=== PATIENT | female | born 1980 | race Caucasian/White ===

== ENCOUNTER → 2020-05-24 16:20 | Outpatient (CLI) | payer OTHER, SELFPAY ==
--- NOTE | ~2020-05-24 | MM_ITS ---
EXAMINATION: MM screening bonifacio BI w sharron HISTORY: Screening TECHNIQUE: Craniocaudal and mediolateral oblique 3-D tomosynthesis images were obtained and synthetic 2-D images were generated. CAD analysis was submitted and interpreted. COMPARISON: Comparison to multiple prior studies sequentially, with oldest reviewed study dated 10/23. BREAST PARENCHYMAL COMPOSITION: The breasts are extremely dense, which lowers the sensitivity of mamm ography. FINDINGS: There is no evidence of suspicious mass, calcification, or architectural distortion to sugg est malignancy in either breast. There has been no suspicious interval change. IMPRESSION: 1. No mammographic evidence of malignancy. 2. Recommend routine screening mammography in one year. BI-RADS Category 1: Negative Reviewed, dictated and finalized at location A. S ADVISORY MANAGER
== END ==
PROVIDERS: Visit Provider Obstetrics & Gynecology Gynecology
DX: Z12.31 Encounter for screening mammogram for malignant neoplasm of breast (principal)
CPT/HCPCS: 77063; 77067

== ENCOUNTER → 2021-02-28 08:19 | Outpatient (CLI) | payer OTHER, SELFPAY ==
--- NOTE | ~2021-02-28 | MMUS_ITS ---
EXAMINATION: MM diagnostic bonifacio BI w sharron, US breast LT complete HISTORY: Palpable left breast mass TECHNIQUE: Additional 3-D tomosynthesis images of the left breast were performed and synthetic 2-D im ages were generated. CAD analysis was submitted and interpreted. High resolution complete left breast ultrasound was performed. COMPARISON: Comparison to multiple prior studies sequentially, with oldest reviewed study dated 11/13. BREAST PARENCHYMAL COMPOSITION: The breasts are extremely dense, which lowers the sensitivity of mamm ography. FINDINGS: MAMMOGRAPHIC FINDINGS: There are no suspicious masses, calcifications or architectural distortion in either breast to sugges t malignancy. ULTRASOUND: Complete bilateral US of all 4 quadrants of the breasts and retroareolar region was reviewed. There a re multiple simple and complicated cyst of the left breast, largest at 2:00, 3 cm from the nipple link suring 1.5 cm maximum dimension. There is a cluster of microcysts at 6:00, 1 cm from the nipple measu ring 5 mm. No suspicious masses to suggest malignancy. IMPRESSION: 1. No evidence for malignancy in either breast. 2. Routine yearly screening mammogram and regular clinical breast examination are recommended. BI-RADS Category 2: Benign finding(s). Reviewed, dictated and finalized at location A. IMPRESSION: 1. No evidence for malignancy in either breast. 2. Routine yearly screening mammogram and regular clinical breast examination a re recommended. BI-RADS Category 2: Benign finding(s).
== END ==
PROVIDERS: Visit Provider Nurse Practitioner
DX: N63.20 Unspecified lump in the left breast, unspecified quadrant (principal)
CPT/HCPCS: 76641; 77062; 77066; G0279

== ENCOUNTER 2023-07-13 10:00 | Outpatient (RCR) | payer BC, SELFPAY ==
--- NOTE | 2023-06-15 09:46 | OPREHPOC ---
Outpatient Therapy Plan of Care This is a Multidisciplinary Plan of Care that may contain components documented by all disciplines (PT, OT, and ST.) PT Problem 1 PT Problem #1 Knowledge Deficit PT Goal 1 Goal 1. Patient will perform independent HEP 2. Patient will verbalize urge suppression strategies Target Visit 5 PT Problem 2 PT Problem #2 Pain PT Goal 1 Goal 1. Patient able to do all normal activities without pelvic pain for at least 2 weeks Target Visit 5 PT Problem 3 PT Problem #3 Impaired Functional ADLs PT Goal 1 Goal 1. Patient able to do all normal activities without urge incontinence for at least 2 weeks Target Visit 5
--- NOTE | 2023-06-15 09:46 | PTOPEVAL1 ---
Assessment and note entered by Lea Mays DPT Evaluation Information Assessment Status Evaluation Subjective Information Pt reports she has been diagnosed with pelvic floor muscle spasms and is noticing cramping pain. Has had kidney stones and appendicitis ruled out. Has been taking a muscle relaxer which is helping . States she has had a lot of stress over the past 6 months and has been sitting a lot more than normal and not as active as she has normally been. Has also been diagnosed with OAB and still has a lot of urgency issues even when taking meds. Voids less than 10 times a day and none at night. Normally no pain with urination. Can hold urge to void up to 30 minutes. Urge incontinence once a week. No stress incontinence. BM every other day, no pain. No history of pelvic pain up until this point. Pt has been 2 times, 2 deliveries both vaginal. Tearing with her first. No other INTELLECTUAL PROPERTY PARALEGAL history. No other b/b issues. Pt still gets regular periods. Patient goal: fix the cramping and pain, strong and healthy pelvic floor When patient's pain is high, she reports nausea and has been unable to do most activities at home. States she has spent a lot of time laying on the couch. Reported Pain Level Pain Score 2: Self Report Assessment PT Clinical Summary The patient is presenting to skilled therapy with a recent onset of pelvic pain. She presents with increased pelvic floor muscle tone which is contributing to her pain and difficulty performing her normal activities. She will highly benefit from therapy to address her muscular impairments in order to return to full function. Plan of Care Interventions Electrical Stimulation,Hot Pack/Cold Pack,Manual Therapy,Neuro Re-education,Patient/Caregiver Education,Therapeutic Activities,Therapeutic Exercise PT Services Indicated Yes Treatment Frequency and 1 time a week for 5 visits Duration These treatments will address the objective and functional deficits as defined above. The patient will be advanced safely and appropriately in order for the patient to progress towards his/her prior level of function. Additional exercises will be introduced and as well as a comprehensive home exercise program upon discharge, if needed, ?to ensure carryover of functional gains achieved in the clinic.
--- NOTE | 2023-07-13 10:36 | OPREHPOC ---
Outpatient Therapy Plan of Care This is a Multidisciplinary Plan of Care that may contain components documented by all disciplines (PT, OT, and ST.) PT Problem 1 PT Problem #1 Knowledge Deficit PT Goal 1 Goal 1. Patient will perform independent HEP 2. Patient will verbalize urge suppression strategies Target Visit 5 Progress Met PT Problem 2 PT Problem #2 Pain PT Goal 1 Goal 1. Patient able to do all normal activities without pelvic pain for at least 2 weeks Target Visit 5 Progress Met PT Problem 3 PT Problem #3 Impaired Functional ADLs PT Goal 1 Goal 1. Patient able to do all normal activities without urge incontinence for at least 2 weeks Target Visit 5 Progress Met
--- NOTE | 2023-07-13 10:36 | PTOPDC ---
Assessment and note entered by Lea Mays DPT Evaluation Information Assessment Status Discharge Subjective Information No pain in the last week, has been feeling good with therapy. Is not limited at home or work at all and has had intercourse without pain. No return to MD scheduled. Reported Pain Level Pain Score 0: Self Report Assessment PT Clinical Summary The patient has made excellent progress in therapy and reports no pain in the last week. She has not been limited with any work or household activities. She demonstrates improved core strength, no tenderness to palpation, and improved pelvic floor muscle tone. Due to her progress, plan for discharge at this time. She has been educated to continue HEP and follow up with MD and /or PT as needed. Plan of Care PT Services Indicated No
== END 2023-07-13 13:44 | disposition home or self-care (01) ==
LOC: ANHPT 10:00
PROVIDERS: Visit Provider Nurse Practitioner
DX: R10.2 Pelvic and perineal pain (principal)
CPT/HCPCS: 97110; 97112; 97140; 97161; 97530

== ENCOUNTER 2024-08-22 02:14 | Day surgery (SDC) | payer BC, SELFPAY ==
[2024-08-12 15:44] VITALS: BMI 20.8
--- OUTSIDE RECORDS SUMMARY | 2024-08-22 02:16 | XMS_ITS | Continuity of Care Document ---
Author Organization [facility] Address [address] [place] [address] [address] [place] [address] Phone Care Team Providers Care Entry Level Civil Engineer Name Role Phone Gallegos OD, Rudy Unavailable Unavailable Procedures Procedure Date Eye Exam, New Patient Refraction Advance Directives Directive Yes / No Effective Date File Name No Information Encounters Encounter Description Practice Location Reason(s) For Visit Diagnoses Date Provider Providers Copied on Encounter [facility], [address] [place] [address] [address], [place], [place], [id number], [place] tel:[phone] [facility] No Information 1-200 9 Gallegos OD Rudy. [address] , [address], [place], [address], [place]. tel:[phone] Family History Family Member Type Diagnosis Age At Onset No Information Payers Payer name Insurance type Covered democrat ID Authoriza tion(s) [employer] Vision Plan CI [id number] Social History Type Description Quantity Date Captured Comments Sex Female Smoking Status No Information Chief Complaint And Reason For Visit No Information Reason For Referral Reason For Referral No Information History Of Present Illness Encounter Date Complaint History Of Prese nt Illness No Information Functional Status Date Functional Assessmen t No Information Instructions Date Instruction Additional Infor mation No Information Assessments Type Assessment Date No Information Patient Care Teams Name Effective Dates (start - stop) Status Members No Information
--- OUTSIDE RECORDS SUMMARY | 2024-08-22 02:16 | XMS_ITS | Clinical Summary ---
Author Organization [facility] Address [address] [place] [phone] Care Team Providers Care Ice Skating Instructor Name Role Phone Rosalia Cabrera Primary Care Provider + Allergies No known active allergies Medications solifenacin (VESIcare) 10 mg tablet 12/03/2021 Active Active Problems Problem Noted Date Diagnosed Date Inconclusive mammogram due to dense breasts 11/28 Abnormal ultrasound of breast 10/18/2022 Dense breast tissue on mammogram 03/02/2021 Family history of breast cancer in first degree relative 03/02/2021 At high risk for breast cancer 03/02/2021 Breast cancer screening, high risk patient 03/02 Breast mass 03/02/2021 Vitamin D deficiency 10/08/2020 Dermatochalasis 03/11/2015 Resolved Problems Problem Noted Date Diagnosed Date Resolved Date Encounter for nonprocreative genetic counseling and testing 03/02/2021 10/18/2022 Immunizations Immunization Administration Dates Next Due Influenza, Quadrivalent, Hig h Dose, Preservative Free, Intrr 02/24/2021 Surgical History Surgery Date Site/Laterality Comments MS TONSILLECTOMY PRIMARY/SECONDARY <AGE 12 BLEPHAROPTOSIS REPAIR 06/13/2018 Left Internal ptosis repair BREAST BIOPSY Family History Medical History Relation Name Comments Breast cancer Maternal Grandmother Contra lateral breast at 64 Lung cancer Maternal Grandmother Breast cancer Mother Naomi Haddad Recurrence at 60; +/-/+, BRCA only negative Breast cancer Other 1 maternal great aunt Colon cancer Other 1 maternal great aunt Breast cancer Other 2 maternal great-aunt Uterine cancer Other 2 maternal great-aunt Relation Name Status Comments Maternal Grandmother Alive Mother Naomi Haddad Alive Other 1 maternal great aunt Other 2 maternal great-aunt Alive Sister Inocencio Alive Social History Tobacco Use Types Packs/Day Years Used Date Smoking Tobacco: Never Smokeless Tobacco: Never AUDIT-C Answer Date Recorded Q1: How often do you have a drink containing alc ohol? 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 Gender Identity Not on file Sexual Orientation Not on file Obstetrics History Para Term AB IAB SAB Ectopic Multiple Livin g Live Births 2 2 2 Date Outcome GA Total Labor Labor//3rd Weight Sex Type Anes PTL Laura A1 A5 Name Clin Term Term Last Filed Vital Signs Vital Sign Reading Time Taken Comments Blood Pressure 115/79 12/12/2023 8:05 AM CDT Pulse 66 12/12/2023 8:05 AM CDT Temperature 36.7 C (98 F) 12/12/2023 8:05 AM CDT Respiratory Rate 16 12/12/2023 8:05 AM CDT Oxygen Saturation 100% 12/12/2023 8:05 AM CDT Inhaled Oxygen Concentration - - Weight 56.2 kg (124 lb) 12/12/2023 8:05 AM CDT Height 162.6 cm (5' 4 ) 10/18/2022 8:47 AM CDT Body Mass Index 21.28 10/18/2022 8:47 AM CDT Plan of Treatment Health Maintenance Due Date Last Done Comments Cervical Cancer Screening 1979 Colon Cancer Screening-Colonoscopy 1979 Depression Screening 1979 Hepatitis C Screening 1979 Hepatitis B Screening 1997 Regular Well Visit/Exam 18-64 1997 Covid-19 Vaccine (2023-2 5 season) 2023 08/04/2020, 07/07/2020 Influenza Vaccine (#1) 2023 02/24/2021 Breast Cancer Screening-Mammogram 04/14/2025 04/14/2024, 04/06/2023, 03/20/2022 DTaP/Tdap/Td Vaccine (2 - Td or Tdap) 04/13/2033 04/13/2023 HPV Vaccines Aged Out No longer eligi ble based on patient's age to complete this topic Pneumococcal vaccine <65 Aged Out No longer eligible based on patient's age to complete this topic Procedures Procedure Name Priority Date/Time Associated Diagnosis Comments DIAGNOSTIC MAMMOGRAM BILATERAL W DILEEP Schedule Routine, Read Routine (OP Routine) 04/14/2024 9:54 AM STAINING MACHINE OPERATOR Mass of upper outer quadrant of right breast from Last 3 Months or Most Recently Relevant to Health Maintenance Results * Diagnostic Mammogram Bilateral W Dileep (04/14/2024 9:54 AM STAINING MACHINE OPERATOR) Anatomical Region Laterality Modality Breast Bilateral Mammography 04/14/2024 2:02 PM STAINING MACHINE OPERATOR Impressions 04/14/2024 2:02 PM STAINING MACHINE OPERATOR No evidence to suggest malignancy is seen. The patient may return to screening mammography and MR as per ACR guidelines. OVERALL FINAL ASSESSMENT: [id number] Electronically signed by: Rosa Boyer M.D. Narrative 04/14/2024 2:02 PM STAINING MACHINE OPERATOR EXAMINATION: BILATERAL DIGITAL DIAGNOSTIC MAMMOGRAM AND DIGITAL BREAST TOMOSYNTHESIS; RIGHT BREAST SONOGRAM HISTORY: Follow-up COMPARISON: Cases dating back to March 07, 2022 TECHNIQUE: Full field digital mammographic views of the bilateral breast(s) were performed, including computer aided detection (CAD) and digital breast tomosynthesis (DBT). Directed ultrasound evaluation of the right breast(s) was performed. BREAST PARENCHYMAL COMPOSITION: The breasts are extremely dense, which lowers the sensitivity of mammography. MAMMOGRAM FINDINGS: There are findings consistent with the known breast cysts. No suspicious masses are seen mammographically. No suspicious calcifications are seen. There is no unexplained architectural distortion. There is no skin thickening seen. There are no mammographically abnormal lymph nodes seen in the axillae or elsewhere. ULTRASOUND FINDINGS: Again seen at 10:00 on the right is a dominant circumscribed hypoechoic nodule with a maximum dimension of 8 mm. There are 2 adjacent small, hypoechoic, circumscribed nodules which appear very similar and probably represent cysts containing debris. The dominant mass has decreased in size over time. The maximum dimension is now 8 mm. Reema Orlando MD IMG MAMMO PROCEDURES Final Result from Last 3 Months or Most Recently Relevant to Health Maintenance Insurance [employer] [place] [employer] [place] Care Teams Ice Skating Instructor Relationship Specialty Start Date End Date Rosalia Cabrera PA [address] [place] [address] PCP - General Nurse Practitioner 02/09/21
--- OUTSIDE RECORDS SUMMARY | 2024-08-22 02:16 | XMS_ITS | Referral Summary ---
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 Gender Identity Not on file Sexual Orientation Not on file Last Filed Vital Signs Vital Sign Reading [...] 10/18/2022 8:47 AM CDT Plan of Treatment Not on file Procedures Procedure Name Priority Date/Time Associated Diagnosis Comments DIAGNOSTIC MAMMOGRAM BILATERAL W DILEEP Schedule Routine, Read Routine (OP Routine) 04/14/2024 9:54 AM MACHINE STONECUTTER Mass of upper outer quadrant of right breast from Last 3 Months or Most Recently Relevant to Health Maintenance Results * Diagnostic Mammogram Bilateral W Dileep (04/14/2024 9:54 AM MACHINE STONECUTTER) Anatomical Region Laterality Modality Breast Bilateral Mammography 04/14/2024 2:02 PM MACHINE STONECUTTER Impressions 04/14/2024 2:02 PM MACHINE STONECUTTER No evidence to suggest malignancy is seen. The patient may return to screening mammography and MR as per ACR guidelines. OVERALL FINAL ASSESSMENT: [id number] Electronically signed by: Rosa Boyer M.D. Narrative 04/14/2024 2:02 PM MACHINE STONECUTTER EXAMINATION: BILATERAL DIGITAL DIAGNOSTIC MAMMOGRAM AND DIGITAL [...] Most Recently Relevant to Health Maintenance [place] [employer] [place] [employer] [place] Care Teams Business Process Consultant Relationship Specialty Start Date End Date Rosalia Cabrera PA [address] [place] [phone] PCP - General Nurse Practitioner 02/09/21
--- OUTSIDE RECORDS SUMMARY | 2024-08-22 02:16 | XMS_ITS | Encounter Summary ---
Author Organization [facility] Address [address] [place] [address] Care Team Providers Care Fur Mixer Name Role Phone Rosalia Cabrera Primary Care Provider [phone] Encounter Details Date Type Department Care Team (Late st Contact Info) Description 07/31/2023 [employer] Message [employer] Business Office [address] [place] [address] [facility] Provider Action Needed Social History Tobacco Use Types Packs/Day Years Used Date Smoking Tobacco: Never Smokeless Tobacco: Never Comments:not a smoker Alcohol Use Standard Drinks/Week Comments Yes 6 (1 standard drink = 0.6 oz pur e alcohol) weekly PHQ-2 Answer Date Recorded Patient Health Questionnaire-2 Score 0 07/12/2022 Comments No Sex and Gender Information Value Date Recorded Sex Assigned at Female 06/06/2024 7:44 AM SALES REPRESENTATIVE TRAINEE Legal Sex Female 7:22 AM CDT Gender Identity Not on file Sexual Orientation Not on file documented as of this encounter Plan of Treatment Not on file documented as of this encounter Visit Diagnoses Not on filedocumented in this encounter Additional Health Concerns Assessment Noted Time PHQ-9 Depression Total Score: 0 10/09/19 21 10:15 AM CDT documented as of this encounter Care Teams Fur Mixer Relationship Specialty Start Date End Date Rosalia Cabrera APNP [address] [place] [id number] PCP - General NURSE PRACTITIONER 03/01/18 documented as of this encounter
--- OUTSIDE RECORDS SUMMARY | 2024-08-22 02:16 | XMS_ITS | Clinical Summary ---
Author Organization [facility] Address [address] [place] [address] Care Team Providers Care Feed Project Engineer Name Role Phone Rosalia Cabrera Primary Care Provider Allergies Active Allergy Reactions Criticality Noted Date Comments Seasonal Eyes Water & Itch 10/08/2020 Medications hydrocortisone 2.5 % Lotion lotionIndicatio ns:Folliculitis Apply 1 (each) topically three times daily as needed. 118 mL 1 5 Active clindamycin (CLEOCIN T) 1 % lotionIndicatio ns:Folliculitis Apply topically 2 (two) times a day. 60 mL 2 5 Active vibegron (GEMTESA) 75 MG tabletIndicatio ns:Overactive bladder Take 1 tablet (75 mg total) by mouth daily. 90 tablet 3 5 Active Active Problems Problem Noted Date Diagnosed Date Breast mass 03/02/2021 Dense breast tissue on mammogram 03/02/2021 Encounter for nonprocreative genetic counseling and testing 03/02/2021 Family history of breast cancer in first degree relative 03/02/2021 Vitamin D deficiency 10/08/2020 Eye pain, left 10/21/2018 Overactive bladder 03/19/2018 Dermatochalasis 03/11/2015 Resolved Problems Problem Noted Date Diagnosed Date Resolved Date Breast cancer screening, high risk patient 03/02/2021 07/17/2022 Encounters Date Type Department Care Team Description 06/19/2024 Telephone [facility] Family & Internal Medicine [address] [phone] Rosalia Cabrera APNP Results 06/13/2024 Telephone [facility] Internal [address] [phone] Rosalia Cabrera APNP Medication Problem 06/11/[address] [phone] Rosalia Cabrera APNP Lab Results 06/06/2024 7:40 AM HYDROELECTRIC PRODUCTION TECHNICIAN Office Visit [facility] Internal [address] [phone] Rosalia Cabrera APNP Physical 06/06/2024 Travel from Last 3 Months Immunizations Immunization Administration Dates Next Due Fluzone 6 Months+ Quad (0.5 mL Prefilled Syringe) 02/24/2021,02/13/2020,03/24/2019 Influenza Adult (Generic) 03/19/2024,02/24/2021 Tdap (Adacel) 04/13/2023 Family History Medical History Relation Comments Breast Cancer Maternal Grandmother Cancer Maternal Grandmother Breast Cancer Mother Cancer Mother Diabetes Other Hypertension Other Relation Status Comments Maternal Grandmother Mother Other Social History Tobacco Use Types Packs/Day Years Used Date Smoking Tobacco: Never Smokeless Tobacco: Never Tobacco Cessation:Counseling Given: No Comments:not a smoker Alcohol Use Standard Drinks/Week Comments Not Currently 6 (1 standard drink = 0.6 oz pur e alcohol) weekly PHQ-2 Answer Date Recorded Patient Health Questionnaire-2 Score 0 06/06/2024 Comments No Sex and Gender Information Value Date Recorded Sex Assigned at Female 06/06/2024 7:44 AM HYDROELECTRIC PRODUCTION TECHNICIAN Legal Sex Female 7:22 AM CDT Gender Identity Not on file Sexual Orientation Not on file Last Filed Vital Signs Vital Sign Reading Time Taken Comments Blood Pressure 108/68 06/06/2024 7:48 AM HYDROELECTRIC PRODUCTION TECHNICIAN Pulse 64 06/06/2024 7:48 AM HYDROELECTRIC PRODUCTION TECHNICIAN Temperature 36 C (96.8 F) 06/06/2024 7:48 AM HYDROELECTRIC PRODUCTION TECHNICIAN Respiratory Rate 16 06/06/2024 7:48 AM HYDROELECTRIC PRODUCTION TECHNICIAN Oxygen Saturation 98% 06/06/2024 7:48 AM HYDROELECTRIC PRODUCTION TECHNICIAN Inhaled Oxygen Concentration - - Weight 55.6 kg (122 lb 9.6 oz) 06/06/2024 7:48 A M HYDROELECTRIC PRODUCTION TECHNICIAN Height 162.6 cm (5' 4 ) 06/06/2024 7:48 AM HYDROELECTRIC PRODUCTION TECHNICIAN Body Mass Index 21.04 06/06/2024 7:48 AM HYDROELECTRIC PRODUCTION TECHNICIAN Plan of Treatment Health Maintenance Due Date Last Done Comments Cervical Cancer Screening Pap Smear (Age 30 to 64) Every 3 Years 1979 Colorectal Cancer Screening Colonoscopy (10 Years) 1979 Hepatitis C 1997 Hepatitis B Vaccines (1 of 3 - 19+ 3-dose series) 1998 Cervical Cancer Screening Pap with HPV Testing (Age 30 to 64) Every 5 Years 2009 Annual Physical 06/06/2025 06/06/2024, 03/30, 10/08/2020 COVID-19 Vaccine ( season) 2025 04/16/2022, 03/26/2021, 08/04/2020, Additional history exists Postponed from 12/30/2023 (Patient Refused) Cervical Cancer Screening with HPV 06/06/2025 Postponed from 2009 (Going to Outside Clinic) Mammogram Screening 04/14/2026 04/14/2024, 04/06/2023, 03/20/2022, Additional history exists DTaP, Tdap and Td Vaccines (2 - Td or Tdap) 04/13/2033 04/13/2023 PHQ-2 (Physician Voss) Completed 06/06/2024 HPV Vaccines Aged Out No longer eligi ble based on patient's age to complete this topic Meningococcal B Vaccine Aged Out No l onger eligible based on patient's age to complete this topic Meningococcal Vaccine Aged Out No zeina jakob eligible based on patient's age to complete this topic Pneumococcal Vaccine: Pediatrics (0 to 5 Years) and At-Risk Patients (6 to 49 Years) Aged Out No longer eligible based on patient's age to complete this topic RSV Immunizations Under 20 Months Aged Out No longer eligible based on patient's age to complete this topic Medical Devices Implanted Type Area Real Estate Transaction Coordinator Device Identifier Shelf Expiration Date Model / Serial / Lot Kit Internal Brace Hand & Wrist Lig Augment Repair - [id number] Implanted:Qty: 1 on 12/28/2021 by Magdi Pillai MD at [facility] [place] Right: Thumb [employer] [id number] 07/28/2026 [id number] / / [id number] Procedures Procedure Name Priority Date/Time Associated Diagnosis Comments DIRECT BILIRUBIN Routine 06/06/2024 1:00 PM HYDROELECTRIC PRODUCTION TECHNICIAN Total bilirubin, elevated COMPREHENSIVE METABOLIC PANEL Routine 06/06/2024 1:00 PM HYDROELECTRIC PRODUCTION TECHNICIAN Routine medical exam CBC W/DIFF AUTOMATED Routine 06/06/2024 1:00 PM HYDROELECTRIC PRODUCTION TECHNICIAN Routine medical exam LIPID PANEL Routine 06/06/2024 1:00 PM HYDROELECTRIC PRODUCTION TECHNICIAN Routine medical exam TSH W/REFLEX Routine 06/06/2024 1:00 PM HYDROELECTRIC PRODUCTION TECHNICIAN Routine medical exam VITAMIN D, 25 OH Routine 06/06/2024 1:00 PM HYDROELECTRIC PRODUCTION TECHNICIAN Vitamin D deficiency COLLECTION VENOUS BLOOD VENIPUNCTURE Routine 06/06/2024 8:34 AM HYDROELECTRIC PRODUCTION TECHNICIAN Routine medical exam Vitamin D deficiency MAMMOGRAM GENERIC (SCAN ORDER) Routine 03/20/2022 from Last 3 Months or Most Recently Relevant to Health Maintenance Results * TSH W/REFLEX (06/06/2024 1:00 PM HYDROELECTRIC PRODUCTION TECHNICIAN) TSH 1.866 0.358 - 3.740 uIU/ML 06/06/2024 4:03 PM HYDROELECTRIC PRODUCTION TECHNICIAN [facility] 06/06/2024 1:00 PM HYDROELECTRIC PRODUCTION TECHNICIAN us [facility] Final Resul t -[facility] [address] [place] [address], [place] [phone] * (ABNORMAL) COMPREHENSIVE METABOLIC PANEL (06/06/2024 1:00 PM HYDROELECTRIC PRODUCTION TECHNICIAN) [facility] SODIUM S/P/B 140 136 - 145 MMOL/L 06/06/2024 4:03 PM [facility] POTASSIUM S/P/B 4.1 3.5 - 5.1 MMOL/L 06/06/2024 4:03 PM [facility] CHLORIDE S/P/B 103 98 - 107 MMOL/L 06/06/2024 4:03 PM [facility] CO2 31.0 21 - 32 MMOL/L 06/06/2024 4:03 PM [facility] GLUCOSE 84 70 - 99 MG/DL 06/06/2024 4:03 PM [facility] BUN 15 7 - 18 MG/DL 06/06/2024 4:03 PM [facility] CREATININE S/P/B 0.71 0.55 - 1.02 MG/DL 06/06/2024 4:03 PM [facility] CALCIUM S/P/B 9.0 8.4 - 10.5 MG/DL 06/06/2024 4:03 PM [facility] BILIRUBIN TOTAL S/P/B 1.6(H) 0.2 - 1.0 MG/DL 06/06/2024 4:03 PM [facility] ALKALINE PHOSPHATASE S/P/B 43 37 - 98 U/L 06/06/2024 4:03 PM [facility] AST 9(L) 15 - 37 U/L 06/06/2024 4:03 PM [facility] ALT 20 14 - 59 U/L 06/06/2024 4:03 PM [facility] TOTAL PROTEIN S/P/B 6.4 6.4 - 8.2 G/DL 06/06/2024 4:03 PM [facility] ALBUMIN S/P/B 4.1 3.4 - 5.0 G/DL 06/06/2024 4:03 PM HYDROELECTRIC PRODUCTION TECHNICIAN [facility] ANION GAP 6.0 5 - 15 MMOL/L 06/06/2024 4:03 PM [facility] Comment:REFERENCE RANGE NOT ESTABLISHED OSMOLALITY (CALC) 290 MOSM/KG 025 4:03 PM [facility] Comment:REFERENCE RANGE NOT ESTABLISHED GFR ESTIMATE >90 >90 ML/MIN/1. 73 M2 06/06/2024 4:03 PM [facility] GFR NOTES GFR REFERENCE S: 06/06/2024 4:03 PM [facility] Comment: THE ESTIMATED GFR IS CALCULATED USING THE 2020 CKD-EPI EQUATION. THE FOLLOWING CATEGORIES FOR GRADING RENAL FUNCTION ARE RECOMMENDED BY THE INTERNATIONAL SOCIETY OF NEPHROLOGY (KDIGO 2012 CLINICAL PRACTICE GUIDELINE). G1,NORMAL OR HIGH: >89 ml/min/1.73 m2 G2,MILDLY DECREASED: 60-89 ml/min/1.73 m2 G3A,MILDLY TO MODERATELY DECREASED: 45-59 ml/min/1.73 m2 G3B,MODERATELY TO SEVERELY DECREASED: 30-44 ml/min/1.73 m2 G4,SEVERELY DECREASED: 15-29 ml/min/1.73 m2 G5,KIDNEY FAILURE: <15 ml/min/1.73 m2 06/06/2024 1:00 PM HYDROELECTRIC PRODUCTION TECHNICIAN us [facility] Final Resul t [facility] [address] [place] [address], * (ABNORMAL) LIPID PANEL (06/06/2024 1:00 PM HYDROELECTRIC PRODUCTION TECHNICIAN) CHOLESTEROL 241(H) <200 MG/DL 06/06/2024 4:03 PM [facility] TRIGLYCERIDES 50 <150 MG/DL 06/06/2024 4:03 PM [facility] HDL 73 >40 MG/DL 06/06/2024 4:03 PM [facility] LDL-C 158(H) <100 MG/DL 06/06/2024 4:03 PM HYDROELECTRIC PRODUCTION TECHNICIAN [facility] VLDL CALCULATION 10 5 - 28 MG/DL 06/06/2024 4:03 PM HYDROELECTRIC PRODUCTION TECHNICIAN [facility] CHOL/HDL RATIO 3.3 0.0 - 4.0 06/06/2024 4:03 PM HYDROELECTRIC PRODUCTION TECHNICIAN [facility] LDL/HDL 2.2(H) 0.41 - 2.13 06/06/2024 4:03 PM HYDROELECTRIC PRODUCTION TECHNICIAN [facility] NON HDL CHOLESTEROL 168(H) <140 MG/DL 06/06/2024 4:03 PM HYDROELECTRIC PRODUCTION TECHNICIAN [facility] 06/06/2024 1:00 PM HYDROELECTRIC PRODUCTION TECHNICIAN [facility] Final Resul t Performing Organization Address City/[facility] Co de Phone Number [facility] [address] [place] [address], [place] [phone] * (ABNORMAL) DIRECT BILIRUBIN (06/06/2024 1:00 PM HYDROELECTRIC PRODUCTION TECHNICIAN) BILIRUBIN DIRECT S/P/B 0.3(H) 0.0 - 0.2 MG/DL 06/11/2024 4:19 PM HYDROELECTRIC PRODUCTION TECHNICIAN [facility] 06/06/2024 1:00 PM HYDROELECTRIC PRODUCTION TECHNICIAN [facility] Final Resul t Performing Organization Address City/[facility]/ZIP Co de Phone Number [address] [address], [place] [phone] * (ABNORMAL) CBC W/DIFF AUTOMATED (06/06/2024 1:00 PM HYDROELECTRIC PRODUCTION TECHNICIAN) WBC 3.04(L) 4.00 - 10.80 x10'3/uL 06/06/2024 5:26 PM [facility] RBC 4.47 4.10 - 5.40 x10'6/uL 06/06/2024 5:26 PM [facility] HGB 14.4 12.0 - 16.0 G/DL 06/06/2024 5:26 PM [facility] HCT 43.2 36.0 - 47.0 % 06/06/2024 5:26 PM [facility] MCV 96.6 78.0 - 100.0 FL 06/06/2024 5:26 PM [facility] MCH 32.2(H) 27.0 - 31.0 PG 06/06/2024 5:26 PM [facility] MCHC 33.3 33.0 - 36.0 G/DL 06/06/2024 5:26 PM [facility] RDW 11.8 11.5 - 14.5 % 06/06/2024 5:26 PM [facility] PLT 172 150 - 350 x10'3/uL 06/06/2024 5:26 PM [facility] MPV 10.9(H) 7.4 - 10.4 FL 06/06/2024 5:26 PM [facility] DIFFERENTIAL TYPE AUTOMATED DIFFERENTIAL 06/06/2024 5:26 PM [facility] NEUTROPHILS % 54.9 % 06/06/2024 5:26 PM [facility] LYMPHOCYTES % 34.2 % 06/06/2024 5:26 PM [facility] MONOCYTES % 7.9 % 06/06/2024 5:26 PM [facility] EOSINOPHILS % 2.0 % 06/06/2024 5:26 PM [facility] BASOPHILS % 1.0 % 06/06/2024 5:26 PM [facility] IMMATURE GRANS % 0.0 % 06/06/2024 5:26 PM HYDROELECTRIC PRODUCTION TECHNICIAN [facility] ABS. NEUTROPHILS 1.67 1.60 - 8.30 x10'3/uL 06/06/2024 5:26 PM HYDROELECTRIC PRODUCTION TECHNICIAN [facility] ABS. LYMPHOCYTES 1.04 0.80 - 4.70 x10'3/uL 06/06/2024 5:26 PM HYDROELECTRIC PRODUCTION TECHNICIAN [facility] ABS. MONOCYTES 0.24 0.00 - 1.50 x10'3/uL 06/06/2024 5:26 PM HYDROELECTRIC PRODUCTION TECHNICIAN [facility] ABS. EOSINOPHILS 0.06 0.00 - 0.40 x10'3/uL 06/06/2024 5:26 PM HYDROELECTRIC PRODUCTION TECHNICIAN [facility] ABS. BASOPHILS 0.03 0.00 - 0.20 x10'3/uL 06/06/2024 5:26 PM HYDROELECTRIC PRODUCTION TECHNICIAN [facility] ABS. IMMATURE GRANULOCYTES 0.00 0.00 - 0.03 x10'3/uL 06/06/2024 5:26 PM HYDROELECTRIC PRODUCTION TECHNICIAN [facility] 06/06/2024 1:00 PM HYDROELECTRIC PRODUCTION TECHNICIAN [facility] Final Resul t Performing Organization Address [facility] Co de Phone Number [facility] [address] [place] [address], * (ABNORMAL) VITAMIN D 25 OH ([facility] ONLY) (06/06/2024 1:00 PM HYDROELECTRIC PRODUCTION TECHNICIAN) VITAMIN D 25 HYDROXY TOTAL S/P/B 25.0(L) 30 - 100 NG/ML 06/06/2024 4:03 PM HYDROELECTRIC PRODUCTION TECHNICIAN [facility] Comment: DEFICIENT <20 INSUFFICIENT 20-30 SUFFICIENT 30-100 06/06/2024 1:00 PM HYDROELECTRIC PRODUCTION TECHNICIAN [facility] Final Resul t [facility] [address] [place] [address], * MAMMOGRAM (03/20/2022) Anatomical Region Laterality Modality Other us Doc [facility] Scanned SCANNING Final Resu lt from Last 3 Months or Most Recently Relevant to Health Maintenance Insurance [facility] Care Teams Feed Project Engineer Relationship Specialty Start Date End Date Rosalia Cabrera APNP [address] [place] [address] PCP - General NURSE PRACTITIONER 03/01/18
[2024-08-22 12:15] VITALS: BP 119/79; PULSE 67; RESP 18; TEMP 36.8; O2SAT 100; BMI 20.5
[2024-08-22 12:29] LABS: BEDSIDEPREGUCG Negative (Negative)
[2024-08-22] MEDS: LACTATED RINGERS 1,000 ML 150 ML IV CONT (12:36)
--- NOTE | 2024-08-22 12:44 | P.HP_ITS ---
H&P: HPI History of Present Illness Date/Time: 08/22/24 12:44 Chief Complaint: Screening colonoscopy Narrative: This is the patient's first colonoscopy. There are no GI symptoms and there is no family history of colorectal cancer. Review of Systems Review of Systems: All systems reviewed & are unremarkable except as noted in HPI and below [facility] Social History Social History Alcohol intake: current Drinks per week: 6 Living arrangements: with family Spiritual care concerns: No Meds Home Medications and Allergies Home Medications ?Medication ?Instructions ?Recorded ?Confirmed ?Type cholecalciferol (vitamin D3) 1 tablet PO DAILY 08/12/24 08/22/24 History vibegron 75 mg tablet (Gemtesa) 75 mg PO DAILY 08/12/24 08/22/24 History Allergies Allergy/AdvReac Type Severity Reaction Status Date / Time No Known Allergies Allergy Unknown Verified 08/22/24 12:20 Vital Signs Vital Signs - 24 hr 08/22/24 12:15 Temperature 98.3 F Pulse Rate 67 Respiratory Rate 18 Blood Pressure 119/79 Pulse Oximetry 100 Oxygen Delivery Room Air Exam Const: General: cooperative and healthy appearing Resp: Effort & Inspection: normal respiratory effort and able to speak in complete sentences Auscultation: clear to auscultation bilaterally Cardio: Rate: regular rate Rhythm: regular rhythm GI: Inspection: normal to inspection GI Palp: No No hepatosplenomegaly present Auscultation: normal bowel sounds Rectal Exam: deferred Skin: General skin exam: normal color Psych: Appearance: grossly normal Mental Status: mental status grossly normal Assessment and Plan Assessment and plan (1) Encounter for screening colonoscopy: Code(s): Z12.11 - Encounter for screening for malignant neoplasm of colon Status: Acute Assessment and Plan: The patient is deemed a good candidate for the procedure. Consent signed. Will proceed.
--- NOTE | 2024-08-22 12:45 | WPDANESEPPF ---
Anes - Initial Pre Proc Eval Procedure: Operation Date: 08/22/24 13:30 Proposed Procedures p Screening Colonoscopy - Jared Villalpando MD Date/Time: 08/22/24 12:45 Surgeon: Jared Villalpando MD Pre Op Diagnosis: Screening Patient Data Age: 44 Gender: F Height: 1.63 m Weight: 54.3 kg Last Vital Signs Temp 98.3 F 08/22/24 12:15 Pulse 67 08/22/24 12:15 Resp 18 08/22/24 12:15 BP 119/79 08/22/24 12:15 Pulse Ox 100 08/22/24 12:15 O2 Del Method Room Air 08/22/24 12:15 Allergies Allergy/AdvReac Type Severity Reaction Status Date / Time No Known Allergies Allergy Unknown Verified 08/22/24 12:20 Home Medications ?Medication ?Instructions ?Recorded ?Confirmed ?Type cholecalciferol (vitamin D3) 1 tablet PO DAILY 08/12/24 08/22/24 History vibegron 75 mg tablet (Gemtesa) 75 mg PO DAILY 08/12/24 08/22/24 History Laboratory Tests 08/22/24 12:28 POC Urine HCG, Qual Negative (Negative) Patient hx anesthesia problems: none Family hx anesthesia problems: none Results Review: All pre-operative results and documents have been reviewed as part of the pre-operative evaluation. [facility] Social History Social History Alcohol intake: current Drinks per week: 6 Living arrangements: with family Spiritual care concerns: No Anes - Eval Final PreProcedure Day of Procedure 08/22/24 12:45 Patient weight: normal Heart: regular rate and rhythm Lungs: clear to auscultation Airway: Mallampati scale class II Neurological: alert and oriented Last oral intake: >/= 8 hours ASA classification: I Emergent: no Anesthetic plan: proceed Anesthesia type and monitoring: general GIVS and standard monitoring Results Review: All pre-operative results and documents have been reviewed as part of the pre-operative evaluation. Informed Consent: The patient's anesthetic plan and its attendant risks and benefits were discussed with the patient/family/POA. Questions were solicited and answers provided to the satisfaction of the patient/family/POA.
[2024-08-22 13:05] VITALS: BP 95/57; PULSE 78; RESP 24; O2SAT 100
[2024-08-22 13:15] VITALS: BP 96/58; PULSE 75; RESP 24; O2SAT 100
[2024-08-22 13:25] VITALS: BP 96/56; PULSE 69; RESP 19; O2SAT 100
== END 2024-08-22 13:30 | disposition home or self-care (01) ==
PROVIDERS: Anesthesiology; PCP Registered Nurse; Referring Provider Registered Nurse; Visit Provider Internal Medicine Gastroenterology
PROC: 0DJD8ZZ Inspection of Lower Intestinal Tract, Via Natural or Artificial Opening Endoscopic (ICD-10-PCS; CPT 45378; principal; 2024-08-22 13:30)
DX: Z12.11 Encounter for screening for malignant neoplasm of colon (principal)
CPT/HCPCS: 45378; J2003; J2704; J7120